=== PATIENT | male | born 1990 | race Caucasian/White ===

== ENCOUNTER 2023-04-05 16:43 | Emergency (ER) | payer MEDICAID, SELFPAY ==
--- NOTE | ~2023-04-05 | US_ITS ---
EXAMINATION: US scrotum doppler DATE: 04/05/2023 18:50 INDICATION: PAIN,SWELLING,MASS . TECHNIQUE: Grayscale and Doppler ultrasound images of the testes were obtained. COMPARISON: None.. FINDINGS: The right testis measures 4.3 x 2.2 x 2.5 cm. The left testis measures 4.2 x 2.1 x 2.5 cm. No testicular mass. There is normal vascular flow to both testes. The right epididymis is normal with normal vascular flow. The left epididymis is normal with normal vascular flow. Small right hydrocele . No left hydrocele. No varicoceles. IMPRESSION: Small right hydrocele. Otherwise normal scrotal ultrasound findings. Reviewed, dictated and finalized at location K.
[2023-04-05 17:15] VITALS: BP 143/91; PULSE 94; RESP 16; TEMP 36.7; O2SAT 100
--- NOTE | 2023-04-05 19:28 | ED.MALEGU ---
HPI - Male Genitourinary General Chief complaint: Urogenital-Male Stated complaint: testicular pain, weight loss, mass on testicle Time Seen by Provider: 04/05/23 19:21 History of Present Illness HPI Narrative: Patient with history of chronic left lower back pain after injury years ago, and had been told he had a mass to his right testicle and has had pain in this for months, presents to establish follow-up, he had had something diagnosed when he was in [place] but moved back here and cannot find his paperwork and was unsure of what the diagnosis was. No new symptoms recently. Related Data Allergies Allergy/AdvReac Type Severity Reaction Status Date / Time Penicillins Allergy Unknown Unverified 02/21/15 00:11 Sulfa (Sulfonamide Allergy Unknown Unverified 02/21/15 00:11 Antibiotics) Review of Systems Review of Systems: CONST: No fever. HEENT: No sore throat C/V: No chest pain RESP: No cough GI: No abdominal pain : Right scrotal pain/mass M/S: Chronic back pain SKIN: No rash. NEURO: No focal weakness bilateral lower extremities PSYCH: [No depression] [facility] Past Medical History Medical History (Updated 04/05/23 @ 21:29 by Ronna Byrd MD) Chronic back pain Hydrocele, right Social History Social History (Updated 04/05/23 @ 21:29 by Ronna Byrd MD) Social History: Does admit to substance use but states he is clean for 2-3 months; no IVDU for 6 years Exam Narrative: EXAMINATION OF ORGAN SYSTEMS/BODY AREAS: Constitutional: Vital signs per nursing GENERAL:[No acute distress, non-toxic appearing.] HEAD: Normal with no signs of head trauma. EYES: EOMI, conjunctiva normal ENT: Hearing grossly intact LUNGS: Nonlabored breathing. HEART: [Regular rate and rhythm] ABD: [Soft], [nontender to palpation] BACK: No redness over lower back, no tenderness to back : Slight tenderness to R scrotum, no swelling EXT: Normal range of motion, ambulating with normal steady gait, normal strength bilateral lower extremities, no numbness SKIN: [No rashes or lesions.] NEURO: [Alert and oriented x 3. No gross focal sensory or strength deficits.] PSYCH: Normal affect Course Vital Signs Vital signs: Vital Signs Temperature 98.1 F 04/05/23 17:15 Pulse Rate 94 04/05/23 17:15 Respiratory Rate 16 04/05/23 17:15 Blood Pressure 143/91 H 04/05/23 17:15 Pulse Oximetry 100 04/05/23 17:15 Temperature 98.1 F 04/05/23 17:15 Pulse Rate 94 04/05/23 17:15 Respiratory Rate 16 04/05/23 17:15 Blood Pressure 143/91 H 04/05/23 17:15 Pulse Oximetry 100 04/05/23 17:15 MDM - Male Genitourinary MDM Narrative Medical decision making narrative: 32-year-old male with history of chronic back pain, right scrotal mass, seen ago for the same complaint but would like to have care established as he just moved back here. Vital signs stable, he is well-appearing, normal neurologic exam, ambulating with normal gait, no severe pain to back nor scrotum on exam. No evidence of acute cord compression, osteomyelitis/discitis or cauda equina without saddle anesthesia, urinary retention/incontinence, numbness/tingling in lower extremities, fever, though he does have history of IV drug use. Doubt AAA or aortic dissection without severe pain/discomfort or any neurovascular deficits and symptoms ongoing for years. I doubt torsion without severe pain/tenderness/high riding testicle or loss of cremasteric reflex. US scrotum showing hydrocele. Findings were discussed with the patient, as well as need to follow-up with urology. Patient is also given follow-up to neurosurgery and a primary care doctor for his other chronic symptoms. He states he has been clean from illicit drugs for months. Patient is given return precautions and instructed to come back at any point in time for worsening pain, fevers, weakness, difficulty walking, urinary or fecal incontinence. Patient expressed understanding of instructions. Disc
== END 2023-04-05 20:29 | disposition home or self-care (01) ==
LOC: ANHED 20:00
PROVIDERS: Emergency Provider Emergency Medicine
DX: M54.50 Low back pain, unspecified (principal); G89.21 Chronic pain due to trauma; N43.3 Hydrocele, unspecified; F19.90 Other psychoactive substance use, unspecified, uncomplicated
CPT/HCPCS: 76870; 93976; 99284